=== PATIENT | female | born 1940 | race Caucasian/White ===

== ENCOUNTER → 2019-01-05 16:25 | Outpatient (CLI) | payer MEDICARE ==
[2019-01-05 17:36] LABS: APPEARANCE CLEAR (CLEAR); BILIRUBIN NEGATIVE (NEGATIVE); COLOR YELLOW (YELLOW); GLUCOSE NEGATIVE (NEGATIVE); KETONE NEGATIVE (NEGATIVE); NITRITE NEGATIVE (NEGATIVE); PROTEIN NEGATIVE (NEGATIVE); UROBILINOGEN NORMAL (NORMAL)
[2019-01-12 15:20] LABS: AEROBE ID Final report (()); RESULT 1 Aerococcus viridans (())
== END | disposition home or self-care (01) ==
LOC: D.LABREF 16:25
PROVIDERS: Internal Medicine Geriatric Medicine
DX: R41.82 Altered mental status, unspecified (principal)